=== PATIENT | male | born 1975 | race Caucasian/White ===

== ENCOUNTER 2016-12-01 12:18 | Emergency (ER) | payer OTHER ==
[2016-12-01 12:42] VITALS: BP 129/77; PULSE 76; TEMP 98.6; O2SAT 97
--- NOTE | 2016-12-01 12:43 | C.PDOC ---
History Of Present Illness 41 y/o male presents to the ED for suture removal from right parietal scalp. Patient states cyst was removed from the area 10 days ago. Otherwise, denies any fever, discharge, swelling, or any other associated symptoms at this time. History Per: Patient History/Exam Limitations: no limitations Onset/Duration Of Symptoms: Days Current Symptoms Are (Timing): Still Present Severity: None Pain Scale Rating Of: 0 Recent travel outside of the [place]: No Additional History Per: Patient Past Medical History Reviewed: Historical Data, Nursing Documentation, Vital Signs Vital Signs: Last Vital Signs Temp 98.6 F 12/01/16 12:47 Pulse 76 12/01/16 12:47 Resp 20 12/01/16 12:47 BP 129/77 12/01/16 12:47 Pulse Ox 97 12/01/16 13:27 Family History: States: Unknown Family Hx - Social History Hx Alcohol Use: Yes Hx Substance Use: No - Immunization History Hx Influenza Vaccination: No Review Of Systems Except As Marked, All Systems Reviewed And Found Negative. Constitutional: Negative for: Fever, Chills Skin: Positive for: Other (suture removal from scalp, no discharge). Negative for: Rash Neurological: Negative for: Headache, Dizziness Physical Exam - Physical Exam Appears: Non-toxic, No Acute Distress Skin: Warm, Dry Head: Atraumatic, Normacephalic, No Tenderness, No Swelling, Other (3 intact sutures on right parietal scalp, no signs of infection) Eye(s): bilateral: Normal Inspection Neck: Normal ROM, Supple Neurological/Psych: Oriented x3, Normal Speech, Normal Cognition ED Course And Treatment O2 Sat by Pulse Oximetry: 97 (RA) Pulse Ox Interpretation: Normal Medical Decision Making Medical Decision Making: Impression: 41 y/o male presents to ED for suture removal from right parietal scalp. Plan: * Remove sutures * Disposition Progress note: 3 sutures removed from right parietal scalp without any difficulty. No immediate complications. Patient is being discharged home, with instructions to follow up with PMD in 1-2 days. 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 - Scribe Statement The provider has reviewed the documentation as recorded by the Scribe Kia Aiken All medical record entries made by the Scribe were at my direction and personally dictated by me. I have reviewed the chart and agree that the record accurately reflects my personal performance of the history, physical exam, medical decision making, and the department course for this patient. I have also personally directed, reviewed, and agree with the discharge instructions and disposition.
[2016-12-01 12:51] VITALS: RESP 20
== END 2016-12-01 13:20 | disposition home or self-care (01) ==
LOC: C.ER 12:18
DX: Z48.02 Encounter for removal of sutures (principal)

== ENCOUNTER 2016-12-14 11:03 | Emergency (ER) | payer OTHER ==
[2016-12-14 11:43] VITALS: TEMP 99.6
[2016-12-14 12:17] LABS: RBC URINE 2 /hpf (0-3); URINE BILIRUBIN NEGATIVE (NEGATIVE); URINE BLOOD NEGATIVE (NEGATIVE); URINE COLOR Yellow (YELLOW); URINE GLUCOSE (UA) 3+ mg/dL (Normal); URINE KETONE NEGATIVE (NEGATIVE); URINE LEUKOCYTE ESTERASE NEG Leu/uL (Negative); URINE PROTEIN NEGATIVE (NEGATIVE); URINE UROBILINOGEN NORMAL mg/dL (0.2-1.0); WBC URINE 1 /hpf (0-5)
--- NOTE | 2016-12-14 13:02 | C.PDOC ---
History Of Present Illness 41 year old male presents to the ED for evaluation of left sided testicular pain present for the past 1 week. He denies any injuries/trauma and reports the pain worsens with movement and when lifting heavy objects. Pt also reports mild dysuria but denies any hematuria, fever, abdominal pain, penile discharge. Time Seen by Provider: 12/14/16 11:31 Chief Complaint (Nursing): Male Genitourinary History Per: Patient History/Exam Limitations: no limitations Onset/Duration Of Symptoms: Days Current Symptoms Are (Timing): Still Present Quality Of Discomfort: "Pain" Associated Symptoms: Urinary Symptoms (mild dysuria) Past Medical History Reviewed: Historical Data, Nursing Documentation, Vital Signs Vital Signs: Last Vital Signs Temp 99.6 F 12/14/16 11:27 Pulse 78 12/14/16 14:09 Resp 16 12/14/16 14:09 BP 132/77 12/14/16 14:09 Pulse Ox 99 12/14/16 14:09 - Medical History PMH: No Chronic Diseases Surgical History: No Surg Hx Family History: States: No Known Family Hx - Social History Hx Alcohol Use: Yes Hx Substance Use: No - Immunization History Hx Tetanus Toxoid Vaccination: No Hx Influenza Vaccination: No Hx Pneumococcal Vaccination: No Review Of Systems Except As Marked, All Systems Reviewed And Found Negative. Cardiovascular: Negative for: Chest Pain, Palpitations Respiratory: Negative for: Cough, Shortness of Breath Gastrointestinal: Negative for: Nausea, Vomiting, Abdominal Pain, Diarrhea Genitourinary: Positive for: Dysuria, Other (left testicular pain). Negative for: Hematuria Physical Exam - Physical Exam Appears: Well, Non-toxic, No Acute Distress Skin: Normal Color, Dry Oral Mucosa: Moist Neck: Normal Cardiovascular: Rhythm Regular Respiratory: Normal Breath Sounds, No Rales, No Rhonchi, No Wheezing Gastrointestinal/Abdominal: Normal Exam, Bowel Sounds, Soft, No Tenderness Male Genital: Normal Inspection (penis normal appearance), Testicular Tenderness (left testicle mildly tender to palpation), No Testicular Swelling, No Inguinal Tenderness, No Inguinal Swelling, Other (no erythema or palpable hernia) Neurological/Psych: Oriented x3 ED Course And Treatment O2 Sat by Pulse Oximetry: 97 (RA) Pulse Ox Interpretation: Normal - Other Rad testicular US X-Ray: Viewed By Me, Read By Radiologist Interpretation: Accession No. : [id number]. Patient Name / ID : ALEXANDRE MEDLEY / [id number]. Exam Date : 12/14/2016 12:59:20 ( Approved ). Study Comment : Sex / Age : M / 41Y. Creator : Pearl Arceo MD. Dictator : Protective Signal Repairer Helper : Bilingual Speech Therapist : Pearl Arceo MD. Approver2 : Report Date : 12/14/2016 13:18:49. My Comment : . HISTORY: TESTICULAR PAIN. TECHNIQUE: Realtime sonography through the scrotum with color and doppler flow. COMPARISON: None Available. FINDINGS: RIGHT TESTICLE: Measures 4.1 x 2.3 x 2.6 cm. Homogeneous echotexture. Blood flow is demonstrated. RIGHT EPIDIDYMIS: Measures approximately 0.9 x 0.8 x 1.1 cm. LEFT TESTICLE: Measures 3.9 x 2.7 x 2.4 cm. Homogeneous echotexture. Blood flow is demonstrated. LEFT EPIDIDYMIS: Measures approximately 1.1 x 0.6 x 1.3 cm. HYDROCELE: Small left hydrocele. VARICOCELE: None. OTHER FINDINGS: None. IMPRESSION: Small left-sided hydrocele. Progress Note: UA, Ucx, Urine CG, testicular US, accucheck ordered and reviewed. Patient given IM rocephin, PO Azithromycin, and PO naprosyn. Reevaluation Time: 14:05 Reassessment Condition: Improved (Patient reassessed, resting comfortably, pain has improved. US shows small left sided hydrocoele. Patient instructed to follow up with urology within 1 week. He understands he should return to ED if symptoms worsen.) Disposition Counseled Patient/Family Regarding: Studies Performed, Diagnosis, Need For Followup, Rx Given - Disposition Referrals: Lilian Waller MD [Staff Provider] - [facility] [Outside] Disposition: HOME/ ROUTINE Disposition Time: 13:35 Condition: STABLE Additional Instructions: SEGUIMIENTO CON UROLOGA DENTRO DE 1 SEMANA USE EL MEDICAMENTO DEL DOLOR RONDA SEA NECESARIO DEVUELVA A LA OWEN DE EMERGENCIA SI LOS SNTOMAS EMEORARAN Prescriptions: Naproxen [Naprosyn Tab] 375 mg PO BID PRN #20 tab PRN Reason: pain Instructions: Hydrocele (ED) Forms: Runner (Uruguayan), Work Excuse Print Language: VIETNAMESE - POA Present On Arrival: None - Clinical Impression Clinical Impression: Acute hydrocele - Scribe Statement The provider has reviewed the documentation as recorded by the Scribe Brigid Ford Provider Attestation: Provider Scribe Attestation: All medical record entries made by the Scribe were at my direction and personally dictated by me. I have reviewed the chart and agree that the record accurately reflects my personal performance of the history, physical exam, medical decision making, and the department course for this patient. I have also personally directed, reviewed, and agree with the discharge instructions and disposition.
--- NOTE | 2016-12-14 13:20 | US ---
HISTORY: TESTICULAR PAIN TECHNIQUE: Realtime sonography through the scrotum with color and doppler flow. COMPARISON: None Available. FINDINGS: RIGHT TESTICLE: Measures 4.1 x 2.3 x 2.6 cm. Homogeneous echotexture. Blood flow is demonstrated. RIGHT EPIDIDYMIS: Measures approximately 0.9 x 0.8 x 1.1 cm. LEFT TESTICLE: Measures 3.9 x 2.7 x 2.4 cm. Homogeneous echotexture. Blood flow is demonstrated. LEFT EPIDIDYMIS: Measures approximately 1.1 x 0.6 x 1.3 cm. HYDROCELE: Small left hydrocele. VARICOCELE: None. OTHER FINDINGS: None. IMPRESSION: Small left-sided hydrocele.
[2016-12-14] MEDS ORDERED: cefTRIAXone (Rocephin) 250 mg Inj IM STA (13:36)
[2016-12-14] MEDS ORDERED: Naproxen 550 mg Tab PO STA (13:41)
[2016-12-14] MEDS ORDERED: cefTRIAXone 250 MG in Lidocaine Hydrochloride 0.9 ML IM ONE (14:00)
[2016-12-14] MEDS ORDERED: Naproxen 550 mg Tab PO ONE (14:06)
[2016-12-14 14:09] VITALS: BP 132/77; PULSE 78; RESP 16
[2016-12-20 08:57] VITALS: O2SAT 97
== END 2016-12-14 14:08 | disposition home or self-care (01) ==
LOC: C.ER 11:03
DX: N43.3 Hydrocele, unspecified (principal)
CPT/HCPCS: 76870; 81001; 82948; 87086; 87491; 87591; 96372; 99283; J0696

== ENCOUNTER 2017-06-26 22:10 | Emergency (ER) | payer OTHER ==
[2017-06-26 22:28] VITALS: RESP 20; O2SAT 99
[2017-06-26 23:49] VITALS: BP 108/64; PULSE 81; TEMP 97.6
--- NOTE | 2017-06-27 00:36 | C.PDOC ---
History Of Present Illness 42 year old male presents to the ED for evaluation of diffuse body aches and fever. Patient states that he has had the flu x6 months but that it is worse today. He reports that he had a couple alcoholic beverages today. No other acute complaints at this time Time Seen by Provider: 06/27/17 00:35 Chief Complaint (Nursing): Substance Abuse History Per: Patient History/Exam Limitations: no limitations Onset/Duration Of Symptoms: Unknown Current Symptoms Are (Timing): Worse Modifying Factor(s): Alcohol Severity: Moderate Pain Scale Rating Of: 4 Recent travel outside of the [place]: No Past Medical History Reviewed: Historical Data, Nursing Documentation, Vital Signs Vital Signs: Last Vital Signs Temp 97.6 F 06/26/17 23:47 Pulse 81 06/26/17 23:47 Resp 20 06/26/17 23:47 BP 108/64 06/26/17 23:47 Pulse Ox 99 06/27/17 00:50 Family History: States: No Known Family Hx - Social History Hx Alcohol Use: Yes Hx Substance Use: No - Immunization History Hx Tetanus Toxoid Vaccination: No Hx Influenza Vaccination: No Hx Pneumococcal Vaccination: No Review Of Systems Constitutional: Positive for: Fever. Negative for: Chills ENT: Negative for: Ear Pain, Throat Pain Cardiovascular: Negative for: Chest Pain Respiratory: Negative for: Cough, Shortness of Breath Gastrointestinal: Negative for: Nausea, Vomiting, Abdominal Pain, Diarrhea Genitourinary: Negative for: Dysuria Musculoskeletal: Positive for: Other (Myalgias) Skin: Negative for: Rash Neurological: Negative for: Headache Physical Exam - Physical Exam Appears: Non-toxic, No Acute Distress Skin: Warm, Dry Head: Normacephalic Eye(s): bilateral: Normal Inspection Oral Mucosa: Moist Neck: Trachea Midline, Supple Chest: Symmetrical Cardiovascular: Rhythm Regular (Rate regular ) Respiratory: No Rales, No Rhonchi, No Wheezing Gastrointestinal/Abdominal: Soft, No Tenderness, No Distention Back: Normal Inspection Extremity: Normal ROM, Other (DP pulses 2+) Extremity: Bilateral: Atraumatic Neurological/Psych: Oriented x3 Gait: Steady ED Course And Treatment O2 Sat by Pulse Oximetry: 99 Disposition Counseled Patient/Family Regarding: Studies Performed, Diagnosis, Need For Followup, Rx Given - Disposition Referrals: [facility] [Outside] [facility], [facility] [Outside] Disposition: HOME/ ROUTINE Disposition Time: 00:36 Condition: FAIR Prescriptions: Oseltamivir Phosphate [Tamiflu] 75 mg PO BID #10 capsule Instructions: Flu, Adult (DC), Muscle and Bone Pain (DC) Forms: [employer] (Yoruba) - Clinical Impression Clinical Impression: Influenza, Myalgia - Scribe Statement The provider has reviewed the documentation as recorded by the Capriceibaric Billings Provider Attestation: All medical record entries made by the Capriceibaric were at my direction and personally dictated by me. I have reviewed the chart and agree that the record accurately reflects my personal performance of the history, physical exam, medical decision making, and the department course for this patient. I have also personally directed, reviewed, and agree with the discharge instructions and disposition.
== END 2017-06-27 01:05 | disposition home or self-care (01) ==
LOC: C.ER 22:10
DX: J11.1 Influenza due to unidentified influenza virus with other respiratory manifestations (principal); M79.1 Myalgia

== ENCOUNTER 2018-02-26 12:28 | Emergency (ER) | payer OTHER ==
[2018-02-26 12:43] VITALS: BP 144/93; PULSE 79; RESP 16; TEMP 98; O2SAT 99
--- NOTE | 2018-02-26 13:38 | C.PDOC ---
History Of Present Illness 42yo male, comes to ER reporting for the past 2 night, he has been having trouble sleeping, and had a dry cough. Patient states last night, he experienced some chest discomfort but denies any pain and reports this occurred after coughing. Patient additionally reports he is stressed and anxious as he has had hours cut at work and he attributes this to causing the lack of sleep. Patient states someone told him to get his "heart checked", prompting visit to the ER. He denies any radiation of discomfort, fever, chills, shortness of breath or vomiting. PMD: None provided Time Seen by Provider: 02/26/18 13:15 Chief Complaint (Nursing): Cough, Cold, Congestion History Per: Patient History/Exam Limitations: no limitations Onset/Duration Of Symptoms: Days Current Symptoms Are (Timing): Still Present Past Medical History Reviewed: Historical Data, Nursing Documentation, Vital Signs Vital Signs: Last Vital Signs Temp 98 F 02/26/18 12:41 Pulse 79 02/26/18 12:41 Resp 16 02/26/18 12:41 BP 144/93 H 02/26/18 12:41 Pulse Ox 99 02/26/18 12:41 - Medical History PMH: Anxiety Surgical History: No Surg Hx Family History: States: No Known Family Hx - Social History Hx Alcohol Use: Yes Hx Substance Use: No - Immunization History Hx Tetanus Toxoid Vaccination: No Hx Influenza Vaccination: No Hx Pneumococcal Vaccination: No Review Of Systems Except As Marked, All Systems Reviewed And Found Negative. Constitutional: Negative for: Fever, Chills Cardiovascular: Positive for: Other (chest discomfort). Negative for: Chest Pain Respiratory: Positive for: Cough. Negative for: Shortness of Breath, Sputum Psych: Positive for: Anxiety Physical Exam - Physical Exam Appears: Non-toxic, No Acute Distress Skin: Normal Color, Warm, Dry Head: Atraumatic, Normacephalic Eye(s): bilateral: Normal Inspection, PERRL, EOMI Nose: Normal Neck: Normal, Supple Chest: Symmetrical, No Tenderness Cardiovascular: Rhythm Regular Respiratory: Normal Breath Sounds Gastrointestinal/Abdominal: Normal Exam, Soft Back: Normal Inspection Extremity: Normal ROM, No Pedal Edema Neurological/Psych: Oriented x3, Normal Speech, Normal Cognition, Other (calm and cooperative) ED Course And Treatment O2 Sat by Pulse Oximetry: 99 (RA) Pulse Ox Interpretation: Normal Medical Decision Making Medical Decision Making: Impression: 42yo male with cough, chest discomfort Plan: Patient with well exam. Informed to follow up with primary care provider in 2-3 days. 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 - Scribe Statement The provider has reviewed the documentation as recorded by the Kvaon Ford Provider Attestation: All medical record entries made by the Kavon were at my direction and personally dictated by me. I have reviewed the chart and agree that the record accurately reflects my personal performance of the history, physical exam, medical decision making, and the department course for this patient. I have also personally directed, reviewed, and agree with the discharge instructions and dis position.
== END 2018-02-26 14:00 | disposition home or self-care (01) ==
LOC: C.ER 12:28
DX: R05 Cough (principal); F43.9 Reaction to severe stress, unspecified